=== PATIENT | male | born 1955 | race Caucasian/White ===

== ENCOUNTER 2017-01-27 10:14 | Emergency (ER) | payer MEDICAID ==
[2017-01-27] MEDS ORDERED: cefTRIAXone IV 1 gm in Dextros 50 ML IV ONE (10:51)
--- NOTE | 2017-01-27 11:18 | C.PDOC ---
History Of Present Illness 61 year old male presents to the emergency department with complaints of drainage from area on the center of the abdomen. Patient notes he had a bump there for "months" but recently the area became swollen with subjective fever. Discharge started today. Eating normal diet. No trauma. Denies history of diabetes, vomiting, diarrhea or other complaints at this time. Time Seen by Provider: 01/27/17 10:33 Chief Complaint (Nursing): Abnormal Skin Integrity History Per: Patient History/Exam Limitations: no limitations Onset/Duration Of Symptoms: Persistent Current Symptoms Are (Timing): Still Present Quality Of Symptoms: Painful, Swollen, Draining Recent travel outside of the [place]: No Past Medical History Reviewed: Historical Data, Nursing Documentation, Vital Signs Vital Signs: Last Vital Signs Temp 97.8 F 01/27/17 15:24 Pulse 72 01/27/17 15:24 Resp 18 01/27/17 15:24 BP 134/72 01/27/17 15:24 Pulse Ox 98 01/27/17 15:24 - Medical History PMH: Kidney Stones Family History: States: Unknown Family Hx - Social History Hx Alcohol Use: No Hx Substance Use: No - Immunization History Hx Tetanus Toxoid Vaccination: No Hx Influenza Vaccination: No Hx Pneumococcal Vaccination: No Review Of Systems Constitutional: Positive for: Fever (subjective fever). Negative for: Chills ENT: Negative for: Nose Discharge Respiratory: Negative for: Shortness of Breath Gastrointestinal: Positive for: Abdominal Pain (external abdomen pain). Negative for: Nausea, Vomiting, Diarrhea Skin: Positive for: Other (swollen area to the center of the abdomen) Physical Exam - Physical Exam Appears: Non-toxic, No Acute Distress Skin: Warm, Dry, Other (3cm by 4cm area of erythema on the center abdomen with no active drainage, no fluctuance, with some induration) Head: Atraumatic, Normacephalic Eye(s): bilateral: Normal Inspection, PERRL, EOMI Nose: Normal Oral Mucosa: Moist Neck: Normal ROM, Supple Chest: Symmetrical, No Deformity Cardiovascular: Rhythm Regular Respiratory: Normal Breath Sounds, No Rhonchi, No Wheezing Gastrointestinal/Abdominal: Soft, Tenderness (diffuse abdominal tenderness ), No Distention, No Guarding, No Rebound Neurological/Psych: Oriented x3 ED Course And Treatment - Laboratory Results Result Diagrams: 01/27/17 11:32 01/27/17 11:32 O2 Sat by Pulse Oximetry: 99 (room air) Progress Note: Abdomen and Pelvis with IV contrast CT and blood work were ordered. Patient was given cefTRIAXone and I & D performed. Discussed with pt risk of fatty deposit returning and need for surgical excision. Upon re- evaluation, patient is resting comfortably, and no acute distress. Patient instructed to follow up with physician in 1-2 days for further evaluation. - Incision & Drainage Of Abscess Anesthesia: Lidocaine 2% Used During Procedure: Continuous Pulse Oximetry, Rail Manager, Oxygen Prep Used: Sterile Water, Betadine Procedure: Incised W/Scalpel Blade#: (11), Drained Pus (and fatty clumpy discharge), Irrigated Cavity W/Saline, Probed To Break Up Loculations, Packed W/ Gauze, Cultures Obtained And Sent To Lab Disposition - Disposition Referrals: Omid Burks MD [Staff Provider] - Disposition: HOME/ ROUTINE Disposition Time: 15:13 Condition: STABLE Additional Instructions: Wound check in 2 days. Return to ER if symptoms persist or worsen. Prescriptions: Cephalexin [cephalexin] 500 mg PO BID #14 cap Naproxen [Naprosyn] 1 tab PO BID PRN #20 tab PRN Reason: Pain Sulfamethoxazole/Trimethoprim [Bactrim DS 800 mg-160 mg] 1 tab PO BID #14 tab Instructions: Abscess Incision and Drainage (ED) Forms: [facility] (Azeri) - Clinical Impression Clinical Impression: Incisional abscess - Scribe Statement The provider has reviewed the documentation as recorded by the Scribe Lin Martin All medical record entries made by the Scribe were at my direction and personally dictated by me. I have reviewed the chart and agree that the record accurately reflects my personal performance of the history, physical exam, medical decision making, and the department course for this patient. I have also personally directed, reviewed, and agree with the discharge instructions and disposition.
[2017-01-27] MEDS ORDERED: cefTRIAXone IV 1 gm in Dextros 50 ML IVPB ONE (11:29)
[2017-01-27 11:37] LABS: BASO # 0.1 K/uL (0.0-0.2); BASO % 0.9 % (0.0-2.0); EOS # 0.1 K/uL (0.0-0.7); EOS % 2.1 % (0.0-4.0); HEMOGLOBIN 13.6 g/dL (12.0-18.0); LYMPH # 1.8 K/uL (1.0-4.3); MEAN CELL VOLUME 88.8 fL (80.0-94.0); MEAN CORPUSCULAR HEMOGLOBIN 29.6 pg (27.0-31.0); MEAN CORPUSCULAR HGB CONC 33.4 g/dL (33.0-37.0); MEAN PLATELET VOLUME 9.6 fL (7.2-11.7); MONO # 0.7 K/uL (0.0-0.8); MONO % 9.7 % (0.0-10.0); NEUT # 4.5 K/uL (1.8-7.0); NEUT % 62.3 % (50.0-75.0); RBC 4.6 Mil/uL (4.40-5.90); RED CELL DISTRIBUTION WIDTH 13.1 % (11.5-14.5); WHITE BLOOD COUNT 7.2 K/uL (4.8-10.8)
[2017-01-27 11:50] LABS: ALBUMIN 3.7 g/dL (3.5-5.0)
[2017-01-27 11:53] LABS: ALB/GLOB RATIO 1.1 (1.0-2.1); ALT/SGPT 47 U/L (21-72); AST/SGOT 28 U/L (17-59); BLOOD UREA NITROGEN 13 mg/dL (9-20); GFR AFRICAN-AMERICAN > 60; GFR NON-AFRICAN AMERICAN > 60
[2017-01-27 11:59] VITALS: RESP 18
[2017-01-27] MEDS ORDERED: Iodixanol 320 MG/ML 100 ML BOTTLE IV ONE (12:36)
[2017-01-27] MEDS ORDERED: Lidocaine 1% w Epi 1:100,000 Inj INJ ONE (14:13)
[2017-01-27] MEDS ORDERED: Lidocaine 2% w Epi 1:100,000 Inj IJ ONE (14:25)
--- NOTE | 2017-01-27 14:45 | CT ---
PROCEDURE: CT Abdomen and Pelvis with contrast HISTORY: r/o abscess COMPARISON: None. TECHNIQUE: CT scan of the abdomen and pelvis was performed after intravenous administration of contrast. Oral contrast was not administered. Coronal and sagittal reformatted images were obtained. Contrast dose: 100 mL Visipaque Radiation dose: Total exam DLP = 533.18 mGy-cm. This CT exam was performed using one or more of the following dose reduction techniques: Automated exposure control, adjustment of the mA and/or kV according to patient size, and/or use of iterative reconstruction technique. FINDINGS: LOWER THORAX: There is dependent atelectasis in the lung bases. LIVER: There is diffuse low-attenuation in the liver. No gross lesion or ductal dilatation. GALLBLADDER AND BILE DUCTS: The gallbladder is partially contracted. No calcified gallstones. PANCREAS: The pancreas is normal in size and there is homogeneous enhancement without ductal dilatation or focal mass. SPLEEN: The spleen is normal in appearance. ADRENALS: Both adrenal glands are normal in size without discrete nodule. KIDNEYS AND URETERS: Both kidneys are normal in size and there is homogeneous enhancement without hydronephrosis or focal mass. VASCULATURE: No aortic aneurysm. BOWEL: The small bowel loops are normal in caliber. APPENDIX: Normal appendix. PERITONEUM: No free fluid. No free air. LYMPH NODES: No enlarged lymph nodes. BLADDER: Grossly normal in appearance. REPRODUCTIVE: The prostate gland is normal in size. BONES: No acute fracture. OTHER FINDINGS: There is a 2.2 x 1.0 cm low-attenuation rim enhancing fluid collection in the subcutaneous midline supraumbilical anterior abdominal wall at the site of markers. There is mild surrounding fat stranding. IMPRESSION: 2.2 x 1.0 cm subcutaneous fluid collection/ abscess in the midline supraumbilical anterior abdominal wall at the site of skin markers. Hepatic steatosis.
[2017-01-27 15:25] VITALS: BP 134/72; PULSE 72; TEMP 97.8
[2017-01-27] MEDS ORDERED: Tmp-Smz 800 mg-160 mg DS Tab PO STA (15:37)
[2017-01-27] MEDS ORDERED: Tmp-Smz 800 mg-160 mg DS Tab ONE (15:38)
[2017-01-27 17:42] VITALS: O2SAT 99
== END 2017-01-27 15:42 | disposition home or self-care (01) ==
LOC: C.ER 10:14
DX: L02.211 Cutaneous abscess of abdominal wall (principal); Z23 Encounter for immunization
CPT/HCPCS: 10060; 74177; 80053; 85025; 87040; 87070; 90471; 90715; 96374; 99285; J0696; J1885; Q9967

== ENCOUNTER 2017-01-30 11:53 | Emergency (ER) | payer MEDICAID ==
[2017-01-30 12:03] VITALS: BMI 25.8
[2017-01-30 12:06] VITALS: BP 101/75; PULSE 88; RESP 20; TEMP 97.8; O2SAT 97
--- NOTE | 2017-01-30 12:36 | C.PDOC ---
Time Seen by Provider: 01/30/17 12:19 Chief Complaint (Nursing): Wound Check History Per: Patient Onset/Duration Of Symptoms: Days Ago (3), Abscess Current Symptoms Are (Timing): Better Location Of Injury: Anterior: Abdomen Severity: Moderate Additional History Per: Prior Records Past Medical History Reviewed: Historical Data, Nursing Documentation, Vital Signs Vital Signs: Last Vital Signs Temp 97.8 F 01/30/17 12:03 Pulse 88 01/30/17 12:03 Resp 20 01/30/17 12:03 BP 101/75 01/30/17 12:03 Pulse Ox 97 01/30/17 12:03 - Medical History PMH: Kidney Stones Family History: States: Unknown Family Hx - Social History Hx Alcohol Use: No Hx Substance Use: No - Immunization History Hx Tetanus Toxoid Vaccination: No Hx Influenza Vaccination: No Hx Pneumococcal Vaccination: No Review Of Systems Except As Marked, All Systems Reviewed And Found Negative. Constitutional: Negative for: Fever, Chills, Weakness Cardiovascular: Negative for: Chest Pain Respiratory: Negative for: Shortness of Breath Gastrointestinal: Negative for: Vomiting Musculoskeletal: Negative for: Neck Pain, Back Pain Skin: Negative for: Rash Neurological: Negative for: Weakness, Numbness, Seizures, Altered Mental Status Physical Exam - Physical Exam Appears: Non-toxic, No Acute Distress Skin: Normal Color, Warm, Dry Head: Atraumatic, Normacephalic Eye(s): bilateral: Normal Inspection, PERRL, EOMI Neck: Normal ROM, Supple Gastrointestinal/Abdominal: Soft, No Tenderness, Other (abdominal wall abscess with packing inside. ) Extremity: Normal ROM Neurological/Psych: Oriented x3, Normal Motor, Normal Sensation ED Course And Treatment O2 Sat by Pulse Oximetry: 97 Pulse Ox Interpretation: Normal Progress Note: Packing was removed and wound was re-packed and dressed. Reassessment Condition: Improved Disposition Counseled Patient/Family Regarding: Diagnosis, Need For Followup - Disposition Referrals: Omid Burks MD [Staff Provider] - Disposition: HOME/ ROUTINE Disposition Time: 12:37 Condition: STABLE Additional Instructions: Continue your antibiotics. Follow up with your doctor or return to the ER in 2- 3 days for another wound check and packing removal. Return to the ER if you develop fever, chills, redness, worsening of symptoms or if you have any other concerns. Instructions: Acute Wound Care (ED) Forms: [facility] (Polish) - Clinical Impression Clinical Impression: Wound check, abscess
== END 2017-01-30 12:42 | disposition home or self-care (01) ==
LOC: C.ER 11:53
DX: Z48.817 Encounter for surgical aftercare following surgery on the skin and subcutaneous tissue (principal)

== ENCOUNTER 2017-02-03 15:53 | Emergency (ER) | payer MEDICAID ==
[2017-02-03 15:53] VITALS: BMI 25.8
[2017-02-03 16:08] VITALS: BP 115/75; PULSE 87; RESP 20; TEMP 98.1; O2SAT 97
--- NOTE | 2017-02-03 18:02 | C.PDOC ---
History Of Present Illness 02/03/2017 William Baker is a 61 year old male, whose past medical history includes renal stones, presents to the emergency department for wound check s/p I&D performed last week on abdomen. Patient reports patient was seen three days ago for a follow up and states the wound is improving. Patient denies chest pain, shortness of breath, headache, fever, chills, cough, nausea, vomiting, diarrhea , abdominal pain, dizziness or other complaints. Time Seen by Provider: 02/03/17 16:36 Chief Complaint (Nursing): Wound Check History Per: Patient History/Exam Limitations: no limitations Current Symptoms Are (Timing): Better Location Of Injury: Right: Abdomen (wound check), Left: Abdomen Severity: None Recent travel outside of the [place]: No Past Medical History Reviewed: Historical Data, Nursing Documentation, Vital Signs Vital Signs: Last Vital Signs Temp 98.1 F 02/03/17 16:04 Pulse 87 02/03/17 16:04 Resp 20 02/03/17 16:04 BP 115/75 02/03/17 16:04 Pulse Ox 97 02/03/17 21:04 - Medical History PMH: Kidney Stones Family History: States: Unknown Family Hx - Social History Hx Alcohol Use: No Hx Substance Use: No - Immunization History Hx Tetanus Toxoid Vaccination: No Hx Influenza Vaccination: No Hx Pneumococcal Vaccination: No Review Of Systems Except As Marked, All Systems Reviewed And Found Negative. Constitutional: Negative for: Fever Cardiovascular: Negative for: Chest Pain Respiratory: Negative for: Shortness of Breath Gastrointestinal: Negative for: Vomiting, Abdominal Pain Skin: Positive for: Other (wound check on abdomen) Physical Exam - Physical Exam Appears: Well, Non-toxic, No Acute Distress Skin: Normal Color, Warm, Dry, Other (2cm area of healing abscess to mid abdomen. packing in place of wound.) Head: Atraumatic, Normacephalic Eye(s): bilateral: Normal Inspection, PERRL, EOMI Nose: Normal Throat: Normal Gastrointestinal/Abdominal: Other (no streaking) Extremity: Normal ROM Neurological/Psych: Oriented x3, Normal Speech Gait: Steady ED Course And Treatment O2 Sat by Pulse Oximetry: 97 (room air) Pulse Ox Interpretation: Normal Medical Decision Making Medical Decision Makin02/03/2017 Patient was requesting to be seen by Physician. Patient was seen by Dr. Vincent. CHAGO Armstrong removed packing and was irrigated with Saline. There is no evidence of purulent drainage or bleeding. Packing will not be replaced. Patient was instructed to follow up with PMD. Patient feels better. Discussed results and plan with patient who expresses understanding. All questions answered and there is agreement with the plan to discharge home with instructions.Patient stable for discharge. Advised to return if symptoms persist or worsen. Disposition - Disposition Referrals: Omid Burks MD [Staff Provider] - Disposition: HOME/ ROUTINE Disposition Time: 18:00 Condition: GOOD Additional Instructions: Continue to wash the wound twice a day. Prescriptions: Acetaminophen [Tylenol] 325 mg PO Q6 PRN #30 tab PRN Reason: Pain, Mild (1-3) Ibuprofen [Motrin] 1 tab PO TID PRN #30 tab PRN Reason: Pain Instructions: Abscess (GEN) Forms: [facility] (Austrian) - Clinical Impression Clinical Impression: Wound check, abscess - Scribe Statement The provider has reviewed the documentation as recorded by the Scribe 02/03/2017 Scribe Attestation: Arcelia Monte MD Scribe Attestation: All medical record entries made by the Scribe were at my direction and personally dictated by me. I have reviewed the chart and agree that the record accurately reflects my personal performance of the history, physical exam, medical decision making, and the department course for this patient. I have also personally directed, reviewed, and agree with the discharge instructions and disposition.
== END 2017-02-03 18:33 | disposition home or self-care (01) ==
LOC: C.ER 15:53
DX: Z48.00 Encounter for change or removal of nonsurgical wound dressing (principal)